=== PATIENT | female | born 1965 | race Caucasian/White ===

== ENCOUNTER 2025-02-05 19:04 | Emergency (ER) | payer OTHER, SELFPAY ==
[2025-02-05 19:10] VITALS: BP 143/73
[2025-02-05] MEDS: TYLENOL 1000 MG PO (19:27)
--- NOTE | 2025-02-05 20:17 | ED.GENMED ---
History of Present Illness
General
Chief Complaint: Fall
Source: patient
Exam Limitations: none
Time Seen by Provider: 02/05/25 19:13
History of Present Illness
History of Present Illness:
59yoF with a history of type 2 diabetes, hypertension, hyperlipidemia presenting for evaluation after a fall about 2 to 3 hours ago. 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 She was carrying a prop when she tripped on the top step
and fell down 12 steps. She fell head first and struck her head. There was no loss of consciousness. She currently complains of a headache and left wrist pain. She developed pain in the left side of her neck about 30 minutes ago which feels like
a pinched nerve. No pleuritic pain, shortness of breath, abdominal pain, back pain. She does not take any blood thinners.
Phy Exam
General Physical Exam
General Presentation: well appearing and no apparent distress
General Skin: warm and dry
General Habitus: normal
General Mental: alert
ENT Exam
ENT Exam: normocephalic and other (No external signs of head trauma. +L cervical tenderness.)
Eye Exam
Eye Exam: PERRL and conjunctiva normal
Pulmonary Exam
Pulmonary Exam: lungs clear, no respiratory distress, no rales, chest non tender, no crackles and no rhonchi
Gastrointestinal Exam
Gastrointestinal Exam: non tender, soft and non distended
Neurological Exam
Neurological Exam: alert
Towson Coma Scale
Eye Opening: Spontaneous
Verbal Response: Oriented
Motor Response: Obeys Commands
GCS Total Score: 15
Musculoskeletal Exam
Musculoskeletal Exam: other (Minor abrasion noted to volar aspect of wrist. No snuffbox tenderness. ROM normal. 2+ radial pulse and sensation intact. )
Skin Exam
Skin Exam: normal color and warm/dry
Psychiatric Exam
Psychiatric Exam: normal mood/affect
Course
Orders/Labs/Results
Orders:
Orders
11/08/25 19:22
CT Cervical Spine W/o Iv Contr Urgent
Comment:
Reason For Exam: fall down steps, neck pain
CT Head W/o Iv Contrast Urgent
Comment:
Reason For Exam: fall down steps, headache
Ice Pack-Treatment DIRECTED
Location: neck
Acetaminophen [Tylenol] 1,000 mg PO NOW STA
CR Wrist - Left Min 3 Views Urgent
Comment:
Reason For Exam: injury
Vital Signs
Initial and Last Documented VS:
Initial Vital Signs
Temp Pulse BP Pulse Ox
98.2 F 72 143/73 96
02/05/25 19:10 02/05/25 19:10 02/05/25 19:10 02/05/25 19:10
Last Documented Vital Signs
Temp Pulse Resp BP Pulse Ox
98.2 F 72 18 143/73 96
02/05/25 19:10 02/05/25 19:10 02/05/25 20:06 02/05/25 19:10 02/05/25 20:20
MDM/Problems Addressed
Differential Diagnosis Includes:
59yoF here after a fall down 12 steps. C/o headache, neck pain, and L wrist pain. She is awake, alert, with a GCS of 15. No external signs of head trauma noted. There is reproducible left cervical tenderness. Minor abrasion noted to the volar
aspect of the left wrist. Differential diagnosis includes but is not limited to: Closed head injury, concussion, intracranial hemorrhage, fracture
Left wrist x-rays, CT head, and CT cervical spine obtained. Imaging is negative for traumatic injuries. Patient stable for discharge. Supportive care discussed and she was advised to follow-up with her PCP.
*Pulse Oximetry
SaO2: 96
Oxygen Mode of Delivery: Room air
Patient hypoxic: no
*Critical Care Note
Total Time (30-74mins, 75-104mins- exclusive of procedures): Not Applicable
ED Attending Note
-
Portions of this chart may have been created with voice recognition software.� Occasional wrong word or��sound alike� substitutions may have occurred due to the inherent limitations of voice recognition software.
Discharge Plan
Departure
Patient Disposition: Home (Routine Discharge)
Date of Disposition: 02/05/25
Time of Disposition: 20:02
Patient with high blood pressure during this ER visit?: Yes
Discharge Problem:
Fall down steps, Cervical strain, Closed head injury
Instructions: Head Injury in Adults (DC), Cervical Sprain ED
Referrals:
Terri Villanueva MD [Family Provider]
Activity Restrictions/Additional Instructions:
Apply ice to affected area. Take Tylenol and ibuprofen as needed for pain.
Please follow-up with your family doctor. Return to the ER with any new or worsening symptoms.
Interventions
Interventions:
*Risk Screen - Suicide Last Done: 02/05/25 19:29
*General Assessment Last Done: 02/05/25 19:10
*Neglect/Abuse Screening Last Done: 02/05/25 19:29
*ED- Fall Risk Assessment Last Done: 02/05/25 19:29
*ED COVID-19 Vaccine History Last Done: 02/05/25 19:29
*ED Influenza Vaccine History Last Done: 02/05/25 19:29
*Nursing Disposition Last Done: 02/05/25 20:09
ED-Musculoskeletal Assessment Last Done: 02/05/25 19:29
ED- Neurological Assessment Last Done: 02/05/25 19:29
ED-Skin Assessment Last Done: 02/05/25 19:29
Discharge Date and Time
Discharge Date/Time: 02/05/25 20:10
Print Language: TURKISH
== END 2025-02-05 20:10 | disposition home or self-care (01) ==
LOC: EMR 19:04
PROVIDERS: EMERGENCY PHYSICIAN Emergency Medicine; FAMILY PHYSICIAN Family Medicine
DX: S16.1XXA Strain of muscle, fascia and tendon at neck level, initial encounter (principal); W10.9XXA Fall (on) (from) unspecified stairs and steps, initial encounter; E11.9 Type 2 diabetes mellitus without complications; E78.5 Hyperlipidemia, unspecified; I10 Essential (primary) hypertension
CPT/HCPCS: 99284; 70450; 72125; 73110